=== PATIENT | male | born 1985 | race Caucasian/White ===

== ENCOUNTER → 2017-08-21 20:23 | Outpatient (CLI) | payer OTHER, SELFPAY ==
--- NOTE | 2017-08-21 20:26 | DI.MRI.S_ITS ---
PROCEDURE: MR LUMBAR SPINE WO CON INDICATIONS: LUMBAGO WITH SCIATICA TECHNIQUE: Noncontrast sagittal T1 spin echo and T2 fast echo, sagittal STIR, axial T1 and T2 fast spin echo through the lumbar spine. In cases with scoliosis, additional coronal T2 fast spin echo may be performed. COMPARISON: None. FINDINGS: Image quality: Excellent. Alignment and Curvature: There is trace retrolisthesis of L3 on L4 and grade one retrolisthesis of L5 on S1. Bone Marrow: Marrow is of normal overall signal. Moderate reactive endplate changes are present at L5-S1. No acute vertebral body compression fractures. Spinal Cord: Conus medullaris terminates at the T12-L1 level. Visualized cord demonstrates normal signal and size. Paraspinous Soft Tissues: No paravertebral masses. Discs: Severe desiccation is present at L5-S1. L1-L2: No disc bulge, spinal stenosis or foraminal narrowing. Mild epidural lipomatosis. L2-L3: No disc bulge, spinal stenosis or foraminal narrowing. Mild epidural lipomatosis. L3-L4: No disc bulge, spinal stenosis or foraminal narrowing. Minimal epidural lipomatosis. L4-L5: No disc bulge, spinal stenosis or foraminal narrowing. L5-S1: Mild disc bulge with posterior central/right paracentral protrusion. There is mild compromise of the lateral recesses bilaterally secondary to broad-based bulge. Severe left and moderate right foraminal narrowing is present with nerve root flattening on the left. IMPRESSION: 1. Disc bulge with superimposed protrusion at L5-S1 with prominent bilateral foraminal narrowing include nerve root flattening on the left. Foraminal narrowing is secondary to retrolisthesis. No pars defect is identified. Dictated by: Noy Preutt M.D. on 08/22/2017 at 12:49 Approved by: Noy Pruett M.D. on 08/22/2017 at 13:00
== END ==
PROVIDERS: PCP Family Medicine; Visit Provider Family Medicine
DX: M54.40 Lumbago with sciatica, unspecified side (principal); M43.17 Spondylolisthesis, lumbosacral region
CPT/HCPCS: 72148

== ENCOUNTER 2017-11-27 11:16 | Inpatient (IN) | payer OTHER, SELFPAY ==
[2017-11-15 11:58] VITALS: BMI 29.0
[2017-11-27] VITALS (19 sets, daily range): BP systolic 94–144; BP diastolic 49–87; PULSE 53–92; RESP 10–22; TEMP 36.5–37.2; O2SAT 93–99; BMI 29.0
--- NOTE | 2017-11-27 | DI.RAD.S_ITS ---
PROCEDURE: XR LUMBAR SPINE 2-3V INDICATIONS: L5-S1 TLIF TECHNIQUE: 2 views of the lumbar spine were acquired. COMPARISON: None. FINDINGS: 2 spot fluoroscopic intraoperative views demonstrating L5-S1 posterior spinal fixation with interbody cage graft. There is expected intraoperative alignment. Dictated by: David Sheffield M.D. on 11/27/2017 at 16:23 Approved by: David Sheffield M.D. on 11/27/2017 at 16:24
[2017-11-27] MEDS: LACTATED RINGERS 1,000 ML 42 ML IV (11:55)
[2017-11-27] MEDS: MIDAZOLAM 2 MG/2 ML VIAL IV (13:27)
--- NOTE | 2017-11-27 13:35 | SUR.OPER ---
Prone on spine table, head in foam head support, padded chest and pelvic supports, gel pad at knees, lower legs supported by pillows; nipples, genitalia and toes free of pressure, arms secured on foam padded arm boards at <90 degrees abduction. Tape over blanket at thigh secured to table.
[2017-11-27] MEDS: CEFAZOLIN 2 GM/100 ML FROZ.PIGGY IV ×2 (13:40→19:07)
[2017-11-27] MEDS: BUPIVACAINE 0.25% W/ EPI VIAL 30 ML INJ (14:19)
[2017-11-27] MEDS: BUPIVACAINE LIPOSOME 266 MG/20 ML VIAL INJ (14:21)
--- NOTE | 2017-11-27 15:54 | PM.OP.1 ---
Operative Date/Time/Diagnoses Date of procedure: 11/27/17 Time of procedure: 13:54 Pre-op diagnosis: 1. L5-S1 spinal stenosis 2. L5-S1 spondylosis with radiculopathy 3. L5-S1 spondylolisthesis Post-op diagnosis: same Procedure & Clinicians Procedure: 1. L5-S1 Postero-lateral and posterior interbody fusion 2. L5-S1 interbody cage placement. 3. L5-S1 decompressive laminectomy with bilateral facetecomies 4. L5-S1 Posterior non-segmental instrumentation 5. [place] of bone marrow from iliac crest 6. Utilization of microsurgical technique and operating microscope Same procedure as scheduled: Yes Indications: Patient has been having chronic back pain and worsening lumbar radiculopathy. Patient failed multiple conservative management with worsening pain weakness and numbness in her lower extremity. Patient has been having difficulty performing activity of daily living. After discussing risks benefits of treatment options, patient elected proceed with surgery. Surgeon: Clarence Mendoza Medical Safety Director: Rivka Sy'Brien Click Yes if Unassisted: No Anesthesia Type: General Operative Notes Closure Type: primary Specimen(s): none sent Implants & Drains: Globus revolve screws, Rise cage Applied: catheter Estimated Blood Loss (mL): 50 Blood products transfused: none Procedure in detail: Patient was seen in the preoperative area. Risks and benefits of the surgery was discussed with the patient. Informed consent was obtained from the patient and placed in the chart. Surgical site was marked. Patient was taken to the operative room. General anesthesia was administered. Prophylactic antibiotic was given to the patient less than 30 min before the incision was made. Patient was placed into a prone position on the Ramesh table. Patient's back was then prepped and draped in the sterile fashion. Time-out was performed at this time. Using AP and lateral C-arm imaging the interval between L5-S1 was identified and marked on patient's back. A 2 inch incision 2 in from midline was made on the left side first. The fascia was incised in line with skin incision. Globus MARS retractors was placed inside the incision and docked onto the L5 lamina. Using microsurgical technique and operating microscope, a L5 laminectomy and L5-S1 facetectomy was performed using a Kerrison rongeur. The disc space at L5-S1 was identified. And a total diskectomy was performed at L5-S1 level. The endplates were decorticated using a rasp and shaver. The total diskectomy and decortication was performed at L5-S1 level in order to to accomplish a L5-S1 fusion. The local bone from the laminectomy and facetectomy was saved for local bone grafting. After the total diskectomy and decortication was completed, Globus viacell bone graft material was combined with local bone that was harvested earlier. At this time, a separate skin is incision was made over the iliac crest. A Jamshidi needle was inserted into the iliac crest through a separate skin incision. 5 cc of bone marrow aspiration was obtained through the separate skin incision using a Jamshidi needle from the iliac crest. The bone marrow aspiration was combined with local bone and the via cell bone grafting material. The bone grafting material was placed into the L5-S1 interbody space along with a expandable cage. The cage was expanded to its maximum height using the torque limiting screwdriver. At this time a mirror image incision was made on the left side. The fascia was incised in line with the skin incision. Globus MARS retractor was inserted and docked onto the L5-S1 posterolateral gutter. Using the power drill, posterior-lateral decortication was performed at L5-S1 level until bleeding cortical bone was identified. The remaining bone grafting material was placed into the L5-S1 posterior lateral gutter he order to accomplish posterolateral fusion at the L5-S1 level. Using the double C-arm technique, pedicle screws were placed into the L5-S1 pedicles bilaterally. This was done by placing the Jamshidi needle into the pedicles, then placing the guidewires over the Jamshidi needle, and finally placing the cannulated screws over the guidewires bilaterally. After the pedicle screws were placed, 2 titanium rods was locked into the heads of the pedicle screws using locking caps and torque limiting screwdriver. After all the hardware was placed, and confirmed with AP and lateral C-arm imaging, the wound was then irrigated with sterile normal saline and packed with Ray-Nancy gauze for 3 min to accomplish hemostasis. After the gauze was removed the deep fascia was closed with #1 Vicryl suture. The subcutaneous layer was closed with 2-0 Vicryl. The skin was closed with skin emily. Patient tolerated the procedure well. There were no complications. Complications: none Condition: stable Disposition: Acute Care Plan for aftercare: Admit to inpatient hospital
--- NOTE | 2017-11-27 15:59 | P.OP_ITS ---
Operative Date/Time/Diagnoses Date of procedure: 11/27/17 Time of procedure: 13:54 Pre-op diagnosis: 1. L5-S1 spinal stenosis 2. L5-S1 spondylosis with radiculopathy 3. L5-S1 spondylolisthesis Post-op diagnosis: same Procedure & Clinicians Procedure: 1. L5-S1 Postero-lateral and posterior interbody fusion 2. L5-S1 interbody cage placement. 3. L5-S1 decompressive laminectomy with bilateral facetecomies 4. L5-S1 Posterior non-segmental instrumentation 5. [place] of bone marrow from iliac crest 6. Utilization of microsurgical technique and operating microscope Same procedure as scheduled: Yes Indications: Patient has been having chronic back pain and worsening lumbar radiculopathy. Patient failed multiple conservative management with worsening pain weakness and numbness in her lower extremity. Patient has been having difficulty performing activity of daily living. After discussing risks benefits of treatment options, patient elected proceed with surgery. Surgeon: Clarence Mendoza Janitor Caretaker: Rivka Sy'Brien Click Yes if Unassisted: No Anesthesia Type: General Operative Notes Closure Type: primary Specimen(s): none sent Implants & Drains: Globus revolve screws, Rise cage Applied: catheter Estimated Blood Loss (mL): 50 Blood products transfused: none Procedure in detail: Patient was seen in the preoperative area. Risks and benefits of the surgery was discussed with the patient. Informed consent was obtained from the patient and placed in the chart. Surgical site was marked. Patient was taken to the operative room. General anesthesia was administered. Prophylactic antibiotic was given to the patient less than 30 min before the incision was made. Patient was placed into a prone position on the Ramesh table. Patient's back was then prepped and draped in the sterile fashion. Time- out was performed at this time. Using AP and lateral C-arm imaging the interval between L5-S1 was identified and marked on patient's back. A 2 inch incision 2 in from midline was made on the left side first. The fascia was incised in line with skin incision. Globus MARS retractors was placed inside the incision and docked onto the L5 lamina. Using microsurgical technique and operating microscope, a L5 laminectomy and L5- S1 facetectomy was performed using a Kerrison rongeur. The disc space at L5-S1 was identified. And a total diskectomy was performed at L5-S1 level. The endplates were decorticated using a rasp and shaver. The total diskectomy and decortication was performed at L5-S1 level in order to to accomplish a L5-S1 fusion. The local bone from the laminectomy and facetectomy was saved for local bone grafting. After the total diskectomy and decortication was completed , Globus viacell bone graft material was combined with local bone that was harvested earlier. At this time, a separate skin is incision was made over the iliac crest. A Jamshidi needle was inserted into the iliac crest through a separate skin incision. 5 cc of bone marrow aspiration was obtained through the separate skin incision using a Jamshidi needle from the iliac crest. The bone marrow aspiration was combined with local bone and the via cell bone grafting material. The bone grafting material was placed into the L5-S1 interbody space along with a expandable cage. The cage was expanded to its maximum height using the torque limiting screwdriver. At this time a mirror image incision was made on the left side. The fascia was incised in line with the skin incision. Globus MARS retractor was inserted and docked onto the L5-S1 posterolateral gutter. Using the power drill, posterior- lateral decortication was performed at L5-S1 level until bleeding cortical bone was identified. The remaining bone grafting material was placed into the L5-S1 posterior lateral gutter he order to accomplish posterolateral fusion at the L5- S1 level. Using the double C-arm technique, pedicle screws were placed into the L5-S1 pedicles bilaterally. This was done by placing the Jamshidi needle into the pedicles, then placing the guidewires over the Jamshidi needle, and finally placing the cannulated screws over the guidewires bilaterally. After the pedicle screws were placed, 2 titanium rods was locked into the heads of the pedicle screws using locking caps and torque limiting screwdriver. After all the hardware was placed, and confirmed with AP and lateral C-arm imaging, the wound was then irrigated with sterile normal saline and packed with Ray-Nancy gauze for 3 min to accomplish hemostasis. After the gauze was removed the deep fascia was closed with #1 Vicryl suture. The subcutaneous layer was closed with 2-0 Vicryl. The skin was closed with skin emily. Patient tolerated the procedure well. There were no complications. Complications: none Condition: stable Disposition: Acute Care Plan for aftercare: Admit to inpatient hospital
[2017-11-27] MEDS: HYDROMORPHONE 2 MG INJ 0.5 MG IV ×4 (16:17→16:38)
[2017-11-27] MEDS: LORazepam 2 MG/ML SYRINGE 0.5 MG IV (16:28)
--- NOTE | 2017-11-27 16:33 | SUR.PHASEI ---
On arrival and to this time with often seen tensed hands and moaning. Discussed with patient need to give meds safely. Talked with DR Rogers about use of Loerazepam and this is okayed verbally as well with MRx1. In addition Dr Rogers saying we can try a different opiod if Dilaudud not addressing problems sufficiently.
[2017-11-27] MEDS: METOCLOPRAMIDE 10 MG/2 ML INJ IV (17:08)
[2017-11-27] MEDS: OXYCODONE IR 5 MG TABLET 10 MG PO ×2 (17:17→20:38)
--- NOTE | 2017-11-27 17:17 | SUR.PHASEI ---
Given Oxycodone IR 10mg after talking with DR Rogers over the phone. Patient noting some nausea with Vicodin previously. Told same could happen with this med, but Reglan IV preventatively. Overall patient calmer and easily responsive despite pain rating remaining elevated.
--- NOTE | 2017-11-27 18:42 | PC.NURSE ---
Addendum entered by Carolynn Thompson R.N. 11/27/17 22:49: Stable post op course. Med w. percolone at 2030 w/god relief. Dsg CDI. Assisted to BR w/o incidence Call light w/in reach, bed alarm on for pt safety. continue w/plan of care. Original Note: Pt arrived at 1735. Awake, drowy. Dsg to surgical back CDI. IV fluids infrusing as per orders via pump w/o incidence. Pt denies nausea. Call light w/in reach, bed alarm on for pt safety.
[2017-11-27] MEDS: OXYCODONE/ACETAMINOPHEN 5/325 TABLET 2 TAB PO (19:06)
[2017-11-27] MEDS: SODIUM CHLORIDE 0.9% 1,000 ML 100 ML IV (19:06)
[2017-11-28] MEDS: OXYCODONE IR 5 MG TABLET 10 MG PO ×6 (00:26→21:05)
[2017-11-28 00:44] VITALS: BP 112/60; PULSE 74; RESP 19; TEMP 37; O2SAT 96
--- NOTE | 2017-11-28 01:15 | PC.NURSE ---
Addendum entered by Carolynn Thompson R.N. 11/28/17 07:08: Med at thisntime w/ IV dialudid for 11/15 discomfort. Original Note: Addendum entered by Carolynn Thompson R.N. 11/28/17 05:50: Med at this time w/vistaril for spasm like discomfort. Original Note: Pt resting quietly at this time. Stable post op course. Dsg CDI, Med w/percolone at 2340 w/good relief. Call light w/in reach, bed alarm on for pt safety.
[2017-11-28] MEDS: CEFAZOLIN 2 GM/100 ML FROZ.PIGGY IV (03:24)
[2017-11-28] MEDS: DOCUSATE 100 MG CAPSULE PO ×2 (03:28→08:56)
[2017-11-28 04:11] VITALS: BP 113/57; PULSE 74; RESP 20; TEMP 36.8; O2SAT 97
[2017-11-28] MEDS: SODIUM CHLORIDE 0.9% 1,000 ML 100 ML IV (05:42)
[2017-11-28] MEDS: hydrOXYzine pamoate 25 MG CAPSULE PO (05:47)
[2017-11-28] MEDS: HYDROMORPHONE 1 MG INJ 0.5 MG IV ×2 (06:56→09:14)
[2017-11-28 07:00] VITALS: BP 116/70; PULSE 92; RESP 21; TEMP 36.7; O2SAT 99
[2017-11-28 07:30] LABS: Hematocrit 39.4 % (41-53); Hemoglobin 13.3 g/dL (13.5-17.5)
[2017-11-28] MEDS: DEXAMETHASONE 4 MG TABLET 10 MG PO (08:55)
[2017-11-28] MEDS: ONDANSETRON 4 MG/2 ML INJ IV ×2 (09:19→17:54)
--- NOTE | 2017-11-28 09:55 | PM.PNPO.1 ---
Subjective Date Patient Seen: 11/28/17 Time Patient Seen: 09:55 Interval history: Hospital day 2, postop day 1 following L5-S1 TLIF [address] Dr. Mendoza. Patient was able to void initially after surgery has been unable to void the last few hours. Notes fullness to his bladder. Complains of persisting pain to lower back and his leg. Has been getting oxycodone 10 mg and IV Dilaudid. Not having complete control. He was on meloxicam preoperatively but is not able to use that at this time because of hardware in his spine. Exam Vital Signs (past 8 hours): - 11/28/17 04:11 11/28/17 07:00 Temperature 98.2 F 98.1 F Pulse Rate 74 92 H Respiratory Rate 20 21 Blood Pressure 113/57 L 116/70 Pulse Oximetry 97 99 Oxygen Delivery Method Room Air Narrative Exam Narrative: Alert, responsive in no acute distress lying in bed. Legs. No calf pain or swelling. Pulses symmetrical. Sensory testing to lower legs nose normal sensation bilaterally except decreased sensation to medial left calf. Good strength on foot dorsiflexion plantar flexion. Objective Labs Result Diagrams: 11/28/17 06:25 Labs: Laboratory Results - last 24 hr 11/28/17 06:25 Hgb 13.3 L Hct 39.4 L Assessment & Plan Post-op Postoperative Procedures Operation Date: 11/27/17 13:15 Actual Procedures Side Surgeon p L5-S1 TLIF Not Applicable Clarence Mendoza MD Plan: Will start patient on dexamethasone to see if this will help with his pain and leg symptoms. Given dexamethasone 10 mg p.o. now and then start dexamethasone 4 mg q.8h at 1400 today. Patient will be bladder scanned this morning and may need in and out catheter. Will observe for further improvement today and anticipate discharge home tomorrow if he is stable. Quality VTE Deep Vein Thrombosis/Pulmonary Embolism Present on Admission: No
[2017-11-28 11:01] VITALS: BP 111/64; PULSE 60; RESP 20; TEMP 37.3; O2SAT 95
--- NOTE | 2017-11-28 11:31 | PC.NURSE ---
Patient had an in and out catheter due to inability to urinate. Bladder scan showed 400mL (per ELECTRONIC DRAFTER) and actual urine output with the catheter was 800 mL. Urine was straw color, clear and without odor. Patient tolerated the procedure well.
--- NOTE | 2017-11-28 12:51 | CM.DANOTE ---
DCP: Reviewed chart. Patient is a 32yr old male admitted to [facility] for TLIF performed by Dr. Mendoza on 11-27-17. Primary payor is 1)Brandon. No PCP listed. Met with patient explained CM/SW role. Patient reports that he resides with his spouse and family in [place] Patient plans to return home upon discharge from [facility] Patient currently with therapy evaluation pending. Patient believes that he will most likely be discharged tomorrow 11-29. Patient has family support at home and reports that his Mom is coming to stay with him from [place] during recovery. Patient already owns FWW. P: Anticipate home when medically stable. CM team to continue to follow for if needs arise. VERÓNICA Bills Discharge Planning/Care Management CM Discharge Assessment Start: 11/28/17 12:47 Freq: Status: Active Protocol: Document 11/28/17 12:48 KJS (Rec: 11/28/17 12:51 KJS [id number]) Discharge Planning Assessment Assigned Life Insurance Sales VERÓNICA Bills Advance Directives? No History Provided By Patient Has Patient been admitted in last 30 No days? Prior Living Arrangements House Household Members significant other Type of transporation used prior to Drives own vehicle admit Independent with ADL's Yes Is patient alert and oriented? Yes Caregiver for Another No DME Already Rented / Owned FWW / Walker Barriers to Discharge No Discharge Plan Home Transportation Arrangement Family to provide transport Referrals Initiated None needed Whiteboard Updated in Patient Room with Yes name and ext. # of Life Insurance Sales Review Status In Process Please Provide Date Initial DC 11/28/17 Assessment Was Performed Next Review Type Continued Stay Review Pre-Anesthesia Assessment Start: 11/14/17 12:59 Freq: Status: Active Protocol: Document 11/15/17 11:58 CAB (Rec: 11/15/17 12:28 CAB [id number]) Pre-Anesthesia Assessment Patient Information Reviewed Via Phone Assessment Assessment Completed With Patient Primary Care Provider None Seen Specialist in Last 12 Months Yes Specialist Seen Orthopedist Primary Language Colombian Wall Taper Required No Height 193.04 cm Weight 108.409 kg Body Mass Index (BMI) 29.0 Hearing Ability Normal Visual Assist Glasses Dentition Type Teeth, Natural Present Barriers to Learning None Hx Anesthesia Reactions No Hx Family Anesthesia Reaction No Hx Malignant Hyperthermia No Hx Blood Transfusions No Anesthesia Review Requested No Manager Corporate Responsibility No alcohol intake current alcohol intake frequency a few times a month Smoking Status Former smoker Tobacco type cigarettes how long ago did patient quit smoking Quit 7 weeks ago, smoked on & off 2 years Substance Use Type marijuana Comment Advised not to smoke marijuana 24 hours prior to surgery Pain Present Pain Reported Musculoskeletal Symptoms Back Pain Difficulty Walking Limited Range of Motion Loss of Height Muscle Spasms Numbness Radiating Pain into Limb History of Falling (Recent or History of No ) Patient is completely paralyzed or No completely immobile Mental Status Oriented to own ability Is patient on oxygen? No Does patient have MCMANUS/SOB No Hx Sleep Apnea No Suspected Sleep Apnea No Currently Taking a Beta Yovani No Can You Climb a Flight of Stairs Without Yes SOB Hx Chest Pain No Hx SOB Yes: r/t asthma/cold Hx Syncope or Dizziness No Anti-Coagulant Therapy No Has a Pipe Coverer No Cardiac Testing No Hx Pacemaker/ICD No Pacemaker Rep Required? No Cardiac Clearance Received Not Applicable Diet Type At Home Regular dysphagia No Urinary Catheter Present No Hx Urinary Self Catheterization No Diabetes No Hx Drug Resistant Organism No Presence of External or Internal Medical No Devices Have you traveled outside the [facility] in the last 30 days? Marital Status Lives With significant other Prior Living Arrangements House Number of Floors (Floors) One Floor Number of Stairs To Enter/Railing? 2 stairs, no railing Support System Family Significant Other Does the Patient Have Assistance After Yes Surgery Patient Discharge Plan Description Return Home Comment Pt advised 1 night length of stay per surgeon's office Feels Safe in Current Environment Yes Been Physically Hurt or Threatened By a No Person in Current Environment Do you have thoughts of harming yourself None or others? Are you currently considering suicide? No Do you have a plan to hurt yourself or No Plan others? Do You Have Any Spiritual Beliefs That No May Affect Your HC Choices? Do You Have Any Cultural Practices That No May Affect Your HC Choices? Spiritual Referral None Who Can We Speak to About Patient's Care Family, friends Identifying Code for Release of Patient Declines to issue Information Health Care Proxy/Next of Kin Samira Shea (S.O.) Health Care Proxy Emergency Contact Name Samira Shea (S.O.) Emergency Contact Advance Directives? No: Declines further information Requested Patient Bring Advanced Not Applicable Directives DOS Power of Precast Concrete Ironworker No PAC Instructions Do not shave/clip surgical site Durable medical equipment Medications to take/avoid Nasal antibiotic NPO Pre-op antibiotic Sturdy shoes/comfortable clothes Do not bring valuables and remove jewelry PAC Comment Pt has high anxiety regarding needles
--- NOTE | 2017-11-28 12:52 | PT.IIE ---
Current Diagnoses Spondylolisthesis, lumbosacral region (11/27/17) Other spondylosis with radiculopathy, lumbar region (11/27/17) Spinal stenosis, lumbar region without neurogenic claudication (11/27/17) Surgery Performed Operation Date: 11/27/17 13:15 Actual Procedures p L5-S1 TLIF(Not Applicable) - Clarence Mendoza MD Surgical History (Last Updated 11/15/17 @ 12:09 by Kourtney Quach RN) H/O: vasectomy (Acute) History of arthroscopy of both knees (Acute) Medical History (Last Updated 11/15/17 @ 12:09 by Kourtney Quach RN) Anxiety (Acute) Low back pain (Acute) Numbness (Acute) RLS (restless legs syndrome) (Acute) Asthma (Chronic 1987) Chronic low back pain (Chronic ~2009) 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 Patient's present during treatment. Mobility and Gait Patient independent in mobility and gait prior to surgery. No assistive devices needed. Activities of Daily Living and IADL's Patient independent in all self-care prior to surgery. 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 Patient drove as needed and performed duties around the home as needed. Social History Household Members spouse family Living Arrangements House Number of Floors (Floors) One Floor Number of Stairs To Enter/Railing? One step to enter home from garage, no hand rails. In the home there are two steps to descend to their bedroom. 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 She is an RN. will also be able to assist patient outside of her work hours. M2 PT-IP Current Condition Start: 11/28/17 12:23 Freq: NEEDED Status: Active Protocol: Document 11/28/17 09:55 NFW (Rec: 11/28/17 12:51 NFW [id number]) Physical Therapy Current Condition Current Condition Evaluation Date 11/28/17 Treatment Diagnosis s/p L5-SA postero-lateral and interbody fusion Onset Date 11/27/17 surgery Precautions Lumbar Precautions Log Roll No Twisting Limit Bending Lifting Restriction of 10 lbs Gait Belt above Incisional Area Weight Bearing Status Weight Bearing Status Full Weight Bearing M3 PT-IP Subjective Start: 11/28/17 12:23 Freq: NEEDED Status: Active Protocol: Document 11/28/17 09:55 NFW (Rec: 11/28/17 12:51 NFW [id number]) Subjective Physical Therapy Visit Type Type Initial Evaluation Visit Start Time 09:55 Visit Stop Time 10:25 Total Visit Minutes 30 Physical Therapy Visit Comments Patient Comments Patient in need to urinate. Also informed from that patient has history of nausea, vomiting with pain meds from previous surgeries. Patient Goals Home with . Therapy Pain Assessment Pain When Pain Assessed At Rest M4 PT-IP Mobility and Gait Start: 11/28/17 12:23 Freq: NEEDED Status: Active Protocol: Document 11/28/17 09:55 NFW (Rec: 11/28/17 12:51 NFW [id number]) PT-Bed Mobility Assessment Rolling Type of Rolling Roll to Left Level of Assist Moderate Assistance 2 Person Assistance Supine to Sit Supine to Sit Moderate Assistance 2 Person Assistance Sit to Supine Sit to Supine Maximum Assistance 2 Person Assistance Scooting Scooting to Edge of Bed Minimal Assistance PT-Transfer Assessment Sit to and From Stand Sit to and from Stand Minimal Assistance 2 Person Assistance Use of Upper Extremities Comments Mobility Comments Patient anxious to get up so that he can urinate. Mod assist of 2 to log roll left and then to sitting. Once sitting c/o dizziness but willing to stand. Min assist of 2 to stand, after ~10 seconds increase dizziness, nausea, sweating. Patient assisted to sitting at EOB. BP sitting 70/29, pulse 69. ~ 5 min. later BP 103/52, pulse 58. Increase nausea, patient assisted supine max assist of three. RN present. M5 PT-IP Objective Assessments Start: 11/28/17 12:23 Freq: NEEDED Status: Active Protocol: Document 11/28/17 09:55 NFW (Rec: 11/28/17 12:51 NF [id number]) Orientation Orientation/Cognition Level of Alertness Alert Language Function Ability No Deficits Noted Sensation Assessment Sensation Gross Sensation WNL Light Touch Intact Comments Sensation Comments Prior to surgery patient would experience occasional numbness into LLE. M6 PT-IP Treatment Start: 11/28/17 12:23 Freq: NEEDED Status: Active Protocol: Document 11/28/17 09:55 NFW (Rec: 11/28/17 12:51 [facility] [id number]) Physical Therapy Treatment Exercises Exercises Ankle Pumps Other Treatments Other Treatment Performed Post-op packet given to patient and . Will review with next treatment. M7 PT-IP Assessment and Plan Start: 11/28/17 12:23 Freq: NEEDED Status: Active Protocol: Document 11/28/17 09:55 NFW (Rec: 11/28/17 12:51 [facility] [id number]) PT Summary Assessment and Plan Potential Rehabilitation Potential Excellent Status of Condition at Evaluation Unstable Summary Impairments Pain Strength Balance Bed Mobility Transfers Gait Activity Tolerance Progress Towards Goals Slow Progress due to Medical Issues Assessment Summary Patient with complication of nausea, vomiting, cold sweats affecting ability to progress in therapy. Goals Bed Mobility Goal Independent Transfer Goal Standby Assistance Gait Goal Standby Assistance Gait Distance 100' Other Goals Post-op Precautions. Days to Meet Goals 2 Frequency of Treatment Frequency Of Treatment Twice a Day Treatment Plan Physical Therapy Treatment Plan Bed Mobility Training Transfer Training Gait Training Therapeutic Exercise Balance Retraining Post Op Education Recommendations To Nursing Amount of Assist Needed 2 Person Assist Discharge Recommendations PT Discharge Recommendations Home Equipment Needed for Home Before Will assess with next Discharge treatment.
[2017-11-28] MEDS: ACETAMINOPHEN 325 MG TABLET 650 MG PO ×2 (13:29→20:16)
--- NOTE | 2017-11-28 14:15 | OT.IP.TRT ---
Current Diagnoses Spondylolisthesis, lumbosacral region (11/27/17) Other spondylosis with radiculopathy, lumbar region (11/27/17) Spinal stenosis, lumbar region without neurogenic claudication (11/27/17) Surgery Performed Operation Date: 11/27/17 13:15 Actual Procedures p L5-S1 TLIF(Not Applicable) - Clarence Mendoza MD Occupational Therapy Treatment Note M3 OT- IP Subjective and Pain Start: 11/28/17 15:03 Freq: Status: Active Protocol: Document 11/28/17 14:15 PJM (Rec: 11/28/17 15:05 PJM [id number]) OT- Subjective Occupational Therapy Visit Type Type Administrative Note Visit Start Time 14:15 Notes OT referral received. Pt presents with very low activity tolerance with P.T. today and has been unable to ambulate. Pt also having trouble with urination. Pt not yet ready for self care skills assessment . Will hold today and recheck pt's status in AM. No charge.
[2017-11-28] MEDS: DEXAMETHASONE 4 MG TABLET PO ×2 (14:25→22:29)
--- NOTE | 2017-11-28 14:33 | PT.IPTN ---
Current Diagnoses Spondylolisthesis, lumbosacral region (11/27/17) Other spondylosis with radiculopathy, lumbar region (11/27/17) Spinal stenosis, lumbar region without neurogenic claudication (11/27/17) Surgery Performed Operation Date: 11/27/17 13:15 Actual Procedures p L5-S1 TLIF(Not Applicable) - Clarence Mendoza MD Physical Therapy Treatment Note M2 PT-IP Current Condition Start: 11/28/17 12:23 Freq: NEEDED Status: Active Protocol: Document 11/28/17 13:30 NFW (Rec: 11/28/17 14:33 NFW [id number]) Physical Therapy Current Condition Current Condition Evaluation Date 11/28/17 Treatment Diagnosis s/p L5-SA postero-lateral and interbody fusion Onset Date 11/27/17 surgery Precautions Lumbar Precautions Log Roll No Twisting Limit Bending Lifting Restriction of 10 lbs Gait Belt above Incisional Area Other Precautions Instructions provided to and patient. Attentive during instruction. Weight Bearing Status Weight Bearing Status Full Weight Bearing M3 PT-IP Subjective Start: 11/28/17 12:23 Freq: NEEDED Status: Active Protocol: Document 11/28/17 13:30 NFW (Rec: 11/28/17 14:33 NFW [id number]) Subjective Physical Therapy Visit Type Type Treatment Note Visit Start Time 13:30 Visit Stop Time 14:15 Total Visit Minutes 45 Number of PROJECT ASST Visits 0 Physical Therapy Visit Comments Patient Comments Patient with desire to walk to toilet to urinate. Patient Goals Home with . Therapy Pain Assessment Pain When Pain Assessed At Rest Pain Present Pain Present Pain Reported Location Lower Back Intensity 8 Scale Used Numeric (1 - 10) M4 PT-IP Mobility and Gait Start: 11/28/17 12:23 Freq: NEEDED Status: Active Protocol: Document 11/28/17 13:30 NFW (Rec: 11/28/17 14:33 NFW [id number]) PT-Bed Mobility Assessment Rolling Type of Rolling Roll to Right Roll to Left Level of Assist Moderate Assistance 1 Person Assistance Supine to Sit Supine to Sit Moderate Assistance 1 Person Assistance Sit to Supine Sit to Supine Moderate Assistance 1 Person Assistance Scooting Scooting to Edge of Bed Minimal Assistance Scooting Up and Down in Bed Minimal Assistance PT-Transfer Assessment Sit to and From Stand Sit to and from Stand Minimal Assistance 1 Person Assistance Use of Upper Extremities Equipment Transfer Assistive Device Front Wheeled Walker Transfers Transfer Destination Bed Transfer Ability Level of Assist Moderate Assistance 1 Person Assistance Comments Mobility Comments Standing from bed, patient again became nauseous, lightheaded, cold sweat. Sat back down at EOB. Attempted to urinate while sitting at EOB unsuccessful. Able to stand again with min assist of one. Able to urinate while standing 1000cc. Continued to have dizziness. Instruction back to bed with continuous cuing. Gait Assessment Assistive Devices Assistive Device Front Wheeled Walker M5 PT-IP Objective Assessments Start: 11/28/17 12:23 Freq: NEEDED Status: Active Protocol: Document 11/28/17 13:30 NFW (Rec: 11/28/17 14:33 NFW [id number]) Orientation Orientation/Cognition Level of Alertness Alert M6 PT-IP Treatment Start: 11/28/17 12:23 Freq: NEEDED Status: Active Protocol: Document 11/28/17 13:30 NFW (Rec: 11/28/17 14:33 NFW [email or web address]) Physical Therapy Treatment Exercises Exercises Ankle Pumps M7 PT-IP Assessment and Plan Start: 11/28/17 12:23 Freq: NEEDED Status: Active Protocol: Document 11/28/17 13:30 NFW (Rec: 11/28/17 14:33 NFW [id number]) PT Summary Assessment and Plan Potential Rehabilitation Potential Excellent Status of Condition at Evaluation Evolving Summary Impairments Pain Strength Balance Bed Mobility Transfers Gait Activity Tolerance Progress Towards Goals Slow Progress due to Medical Issues Assessment Summary Continued slow post-op progression with dizziness, nausea, vomiting, cold sweats. Good attempts by patient. Receptive with instruction. Frequency of Treatment Frequency Of Treatment Twice a Day Treatment Plan Physical Therapy Treatment Plan Bed Mobility Training Transfer Training Gait Training Therapeutic Exercise Balance Retraining Post Op Education Recommendations To Nursing Amount of Assist Needed 1 Person Assist Discharge Recommendations PT Discharge Recommendations Home Other Discharge Recommendations Home with and mother. Equipment Needed for Home Before No further equipment at Discharge present from PT. May need equipment from OT.
[2017-11-28 15:40] VITALS: BP 128/60; PULSE 65; RESP 12; TEMP 36.7; O2SAT 98
--- NOTE | 2017-11-28 15:44 | PC.NURSE ---
Ortho: Lots of pain this am, having diff voiding. Started dexa and saline locked IVF. Bladder scanned for 600mls, in and out cath for 800mls. Thought nausea might be due to pain meds, opted for plain tylenol this afternoon. Ended up needing some oxycodone after all. Po pain meds have been effective. Was able to void this afternoon. Is feeling better this afternoon and was able to work with PT some. Hopefully will feel better tomorrow. Cont w/poc.
[2017-11-28] MEDS: MAG HYDROX/ALUM/SIMETH 30 ML UDC PO (17:57)
[2017-11-28] MEDS: SENNOSIDES 8.6 MG TABLET 17.2 MG PO (20:18)
[2017-11-28 22:33] VITALS: BP 111/50; PULSE 58; RESP 20; TEMP 37.2; O2SAT 95
[2017-11-29] MEDS: OXYCODONE IR 5 MG TABLET 10 MG PO ×5 (01:18→21:48)
[2017-11-29 01:21] VITALS: BP 114/68; PULSE 65; RESP 16; TEMP 36.9; O2SAT 95
--- NOTE | 2017-11-29 05:27 | PC.NURSE ---
Pt is A and O x4, VSS. Pt able to void with urinal qs, clear yellow. Pt rates pain 7/10 but gets good relief from10 mg oxycodone po. Pt able to sleep. Pt is drinking well. Pt denies nausea, states he has not had a BM since 11/25/17 which is unusual but has been hesitant to take too many bowel meds until he is able to ambulate better. Bt very faint. S1, S2, LS clear. R wrist IV saline locked.
[2017-11-29 06:04] VITALS: BP 112/49; PULSE 66; RESP 16; TEMP 37.1; O2SAT 96
[2017-11-29] MEDS: DEXAMETHASONE 4 MG TABLET PO ×3 (08:02→21:46)
[2017-11-29] MEDS: DOCUSATE 100 MG CAPSULE PO ×2 (08:02→21:46)
--- NOTE | 2017-11-29 08:16 | PM.PNPO.1 ---
Subjective Date Patient Seen: 11/29/17 Time Patient Seen: 07:30 Interval history: Patient is POD 2 staus post L5-S1 TLIF by Dr. Mendoza. Patient is laying in bed comfortably without any signs of distress. is sitting bedside. Patient rates his pain a 7/10. He reports that his pain has improved since yesterday. His pain is managed with 10mg oxycodone. PT was seen yesterday. Patient reports not being able to fully do PT due to feeling dizzy and nauseated. Patient reports that he was having difficulty voiding yesterday and catheter was placed. Catheter was removed and patient reports he is able to urinate. Patient went from bed to standing position while in room and reports no dizziness or nausea. Patient denies and fever, chills, SOB,chest pain or vomiting. Exam Vital Signs (past 8 hours): - 11/29/17 01:21 11/29/17 06:04 Temperature 98.5 F 98.7 F Pulse Rate 65 66 Respiratory Rate 16 16 Blood Pressure 114/68 112/49 L Pulse Oximetry 95 96 Oxygen Delivery Method Room Air Oxygen Flow Rate 0 Narrative Exam Narrative: Patient is AOx3. is bedside. Patient is in no acute distress. Radial and dorsalis pedis pulses 2+ and symmetric. Muscle strength 5/5 in dorsiflexion, plantarflexion and leather stretcher bilaterally. Sensation to light touch intact in LE bilaterally. Lumbar dressing CDI. DVT compression devices noted on LE bilaterally. L calf is slightly tender to palpation, otherwise calfs are soft and compressible bilaterally. Patient is able to stand up from laying in bed with little pain. Objective Labs Result Diagrams: 11/28/17 06:25 Assessment & Plan Post-op Postoperative Procedures Operation Date: 11/27/17 13:15 Actual Procedures Side Surgeon p L5-S1 TLIF Not Applicable Clarence Mendoza MD Postoperative day: 2 Postoperative plan: routine post-op care and ambulate Postoperative plan narrative: Continue mobilizing, sitting in chair and ambulating with PT. Continue pain management. Likely to discharge home tomorrow. Continue DVT prophylaxis. Quality VTE Deep Vein Thrombosis/Pulmonary Embolism Present on Admission: No
--- NOTE | 2017-11-29 08:31 | P.PN_ITS ---
Subjective Date Patient Seen: 11/29/17 Time Patient Seen: 07:30 Interval history: Patient is POD 2 staus post L5-S1 TLIF by Dr. Mendoza. Patient is laying in bed comfortably without any signs of distress. is sitting bedside. Patient rates his pain a 7/10. He reports that his pain has improved since yesterday. His pain is managed with 10mg oxycodone. PT was seen yesterday. Patient reports not being able to fully do PT due to feeling dizzy and nauseated. Patient reports that he was having difficulty voiding yesterday and catheter was placed. Catheter was removed and patient reports he is able to urinate. Patient went from bed to standing position while in room and reports no dizziness or nausea. Patient denies and fever, chills, SOB,chest pain or vomiting. Exam Vital Signs (past 8 hours): - 11/29/17 01:21 11/29/17 06:04 Temperature 98.5 F 98.7 F Pulse Rate 65 66 Respiratory Rate 16 16 Blood Pressure 114/68 112/49 L Pulse Oximetry 95 96 Oxygen Delivery Method Room Air Oxygen Flow Rate 0 Narrative Exam Narrative: Patient is AOx3. is bedside. Patient is in no acute distress. Radial and dorsalis pedis pulses 2+ and symmetric. Muscle strength 5/ 5 in dorsiflexion, plantarflexion and bookmobile clerk bilaterally. Sensation to light touch intact in LE bilaterally. Lumbar dressing CDI. DVT compression devices noted on LE bilaterally. L calf is slightly tender to palpation, otherwise calfs are soft and compressible bilaterally. Patient is able to stand up from laying in bed with little pain. Objective Labs Result Diagrams: 11/28/17 06:25 Assessment & Plan Post-op Postoperative Procedures Operation Date: 11/27/17 13:15 Actual Procedures Side Surgeon p L5-S1 TLIF Not Applicable Clarence Mendoza MD Postoperative day: 2 Postoperative plan: routine post-op care and ambulate Postoperative plan narrative: Continue mobilizing, sitting in chair and ambulating with PT. Continue pain management. Likely to discharge home tomorrow. Continue DVT prophylaxis. Quality VTE Deep Vein Thrombosis/Pulmonary Embolism Present on Admission: No
[2017-11-29] MEDS: hydrOXYzine pamoate 25 MG CAPSULE PO ×2 (08:59→18:41)
[2017-11-29] MEDS: ACETAMINOPHEN 325 MG TABLET 650 MG PO (08:59)
[2017-11-29 09:00] VITALS: BP 119/59; PULSE 69; RESP 16; TEMP 36.7; O2SAT 98
--- NOTE | 2017-11-29 10:58 | OT.IP.EVAL ---
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 Tylenol given prior to treatment. Patient's present during treatment . Mobility and Gait Patient independent in mobility and gait prior to surgery. No assistive devices needed. Activities of Daily Living and IADL's Patient independent in all self-care prior to surgery. 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 Patient drove as needed and performed duties around the home as needed. Social History Household Members spouse family Living Arrangements House Number of Stairs To Enter/Railing? One step to enter home from garage, no hand rails. In the home there are two steps to descend to their bedroom. Home Equipment Front Wheel Walker Additional Social History Comment Patient's mother is flying in from [place] today to stay with patient. She is an RN. will also be able to assist patient outside of her work hours. M2 OT-IP Current Condition Start: 11/28/17 15:03 Freq: Status: Active Protocol: Document 11/29/17 10:10 [facility] (Rec: 11/29/17 10:57 [facility] [id number]) Occupational Therapy Current Condition Current Condition Evaluation Date 11/29/17 Treatment Diagnosis Spinal Stenosis Diagnosis Onset Date 11/27/17 Post Operative Precautions Lumbar Precautions Log Roll No Twisting Limit Bending Lifting Restriction of 10 lbs Gait Belt above Incisional Area Other Precautions Instructions provided to and patient. Attentive during instruction. Weight Bearing Status Weight Bearing Status Full Weight Bearing M3 OT- IP Subjective and Pain Start: 11/28/17 15:03 Freq: Status: Active Protocol: Document 11/29/17 10:10 [facility] (Rec: 11/29/17 10:57 [facility] [id number]) OT- Subjective Occupational Therapy Visit Type Type Initial Evaluation Visit Start Time 09:20 Visit Stop Time 10:10 Total Visit Minutes 50 Occupational Therapy Visit Comments Patient Comments Pt agreeable to get up. OT Pain Assessment Pain When Pain Assessed During Mobility Pain Present Pain Present Pain Reported Location Lower Back Intensity 8 Scale Used Numeric (1 - 10) Pain Behaviors Wincing Management Techniques Apply Cold Re-positioning Timing of Activity with Medications M4 OT- IP ADL's Start: 11/28/17 15:03 Freq: Status: Active Protocol: Document 11/29/17 10:10 [facility] (Rec: 11/29/17 10:57 [facility] [id number]) OT ADL-Grooming Comments OT Grooming Comments Pt not up to doing any grooming at this time due to pain. OT ADL-Dressing General Eval Lower Body Dressing Ability Maximum Assistance Comments OT Dressing Comments Pt dependent for socks at this time and due to pain did not want to try to use LB AED. Pt has wheelabrator operator and long handled shoe horn at home. OT ADL-Toileting Comments OT Toileting Comments Pt's to get BSC as pt has two steps to bedroom and also suggested to have pt use urinal. OT ADL-Bathing Comments OT Bathing Comments Pt not wanting to shower. M5 OT- IP IADL's Start: 11/28/17 15:03 Freq: Status: Active Protocol: Document 11/29/17 10:10 [facility] (Rec: 11/29/17 10:57 [facility] [email or web address]) OT-Instrumental Activities of Daily Living Home Safety Awareness Home Safety Comments Pt will have assist for all IADL needs from family. M6 OT- IP Functional Cognition Start: 11/28/17 15:03 Freq: Status: Active Protocol: Document 11/29/17 10:10 [facility] (Rec: 11/29/17 10:57 [facility] [email or web address]) Cognitive Factors Limiting Selfcare Function Cognitive Ability Level of Alertness Alert Patient Orientation Name Age Birthday Month Date Year Day of Week Place Situation Attention Span Ability Capable of Focused Attention Capable of Sustained Attention Ability to Follow Commands Able to Follow One Step Commands Safety Awareness Decreased Ability to Apply Precautions Cognitive Comments Cognitive Assessment Comments Pt just needing lots of encouragement and reassurance to move more in therapy. pt needing reminders for back precautions for needs. OT- Vision and Hearing OT- Hearing Assessment OT- Hearing Assessment WFL M7 OT- IP Mobility and Balance Start: 11/28/17 15:03 Freq: Status: Active Protocol: Document 11/29/17 10:10 [facility] (Rec: 11/29/17 10:57 [facility] [email or web address]) OT- Bed Mobility Assessment Rolling Type of Rolling Roll to Left Supine to Sit Supine to Sit Assist Contact Guard Assistance Sit to Supine Sit to Supine Assist Minimal Assistance Scooting Scooting to Edge of Bed Standby Assistance OT-Transfer Assessment Sit to and From Stand Sit to and from Stand Contact Guard Assistance Transfers Transfer Ability Standby Assistance Contact Guard Assistance Technique Transfer Destination Bed Chair Transfer Technique Stand Step Pivot Devices Transfer Assistive Devices Gait Belt Front Wheeled Walker Comments Mobility Comments Pt reminders for log roll, has to push up from the FWW to get up. Pt's able to show good safety and demonstration to assist pt for transfers and will needs more hands on training for sit to supine needs. OT- Balance Assessment Sitting Balance and Reactions Static Sitting Balance Ability Normal Dynamic Sitting Balance Ability Good Standing Balance and Reactions Static Standing Balance Ability Good M8 OT- IP Objective Assessments Start: 11/28/17 15:03 Freq: Status: Active Protocol: Document 11/29/17 10:10 [facility] (Rec: 11/29/17 10:57 [facility] [id number]) OT Gross Range of Motion Upper Extremity Range of Motion Assessment Within Functional Limits OT Strength Upper Extremity Strength Assessment Within Functional Limits OT-Muscle Tone Assessment Muscle Tone WNL Yes M9 OT- IP Assessment and Plan Start: 11/28/17 15:03 Freq: Status: Active Protocol: Document 11/29/17 10:10 [facility] (Rec: 11/29/17 10:57 [facility] [email or web address]) OT Summary Assessment and Plan Potential Rehabilitation Potential Excellent Analytic Complexity at Evaluation Low Summary OT Impairments Pain Functional Cognition Functional Mobility Grooming Dressing Toileting Bathing Toilet Transfers Shower Transfers Progress Towards Goals Slow Progress due to Pain Slow Progress due to Activity Tolerance Assessment Summary Pt Low complexity and main barrier is steps and pain and only been able to take steps around the bed with FWW to the recliner at this time. Pt and had good understanding for all OT equipment needs and suggestions for safety at this time. Pt to have lot of assistance at home to help, mom in from [place]. Goals Grooming Goal Standby Assistance Dressing Goal Minimal Assistance Toileting Goal Standby Assistance Bathing Goal Minimal Assistance Toilet Transfer Goal Standby Assistance Shower Transfer Goal Contact Guard Assistance Patient/Caregiver Education Goal Demonstrate Post-Op Precautions Caregiver Independent Assisting Patient Days to Meet Goals 2 Frequency of Treatment Frequency Of Treatment Once a Day Treatment Plan OT Treatment Plan ADL Training Functional Cognition Training Patient/Family Education Discharge Planning Other Treatment Recommendations and Next Caregiver traiing with Treatment Focus Discharge Recommendations OT Discharge Recommendations Home with Assistance Home Equipment Needs garry NEIL FWW
[2017-11-29] MEDS: HYDROMORPHONE 2 MG TABLET 4 MG PO ×2 (11:47→16:59)
[2017-11-29] MEDS: MAG HYDROX/ALUM/SIMETH 30 ML UDC PO ×2 (11:48→18:41)
[2017-11-29] MEDS: ONDANSETRON 4 MG/2 ML INJ IV (11:55)
--- NOTE | 2017-11-29 12:06 | PT.IPTN ---
Current Diagnoses Spondylolisthesis, lumbosacral region (11/27/17) Other spondylosis with radiculopathy, lumbar region (11/27/17) Spinal stenosis, lumbar region without neurogenic claudication (11/27/17) Surgery Performed Operation Date: 11/27/17 13:15 Actual Procedures p L5-S1 TLIF(Not Applicable) - Clarence Mendoza MD Physical Therapy Treatment Note M2 PT-IP Current Condition Start: 11/28/17 12:23 Freq: NEEDED Status: Active Protocol: Document 11/28/17 13:30 [facility] (Rec: 11/28/17 14:33 [email or web address]) Physical Therapy Current Condition Current Condition Evaluation Date 11/28/17 Treatment Diagnosis s/p L5-SA postero-lateral and interbody fusion Onset Date 11/27/17 surgery Precautions Lumbar Precautions Log Roll No Twisting Limit Bending Lifting Restriction of 10 lbs Gait Belt above Incisional Area Other Precautions Instructions provided to and patient. Attentive during instruction. Weight Bearing Status Weight Bearing Status Full Weight Bearing M3 PT-IP Subjective Start: 11/28/17 12:23 Freq: NEEDED Status: Active Protocol: Document 11/29/17 12:05 [facility] (Rec: 11/29/17 12:06 [facility] [email or web address]) Subjective Physical Therapy Visit Type Type Patient Refusal Notes Pt refusal d/t pain levels, to see after meds provided after lunch. M4 PT-IP Mobility and Gait Start: 11/28/17 12:23 Freq: NEEDED Status: Active Protocol: Document 11/28/17 13:30 [facility] (Rec: 11/28/17 14:33 [email or web address] [email or web address]) PT-Bed Mobility Assessment Rolling Type of Rolling Roll to Right Roll to Left Level of Assist Moderate Assistance 1 Person Assistance Supine to Sit Supine to Sit Moderate Assistance 1 Person Assistance Sit to Supine Sit to Supine Moderate Assistance 1 Person Assistance Scooting Scooting to Edge of Bed Minimal Assistance Scooting Up and Down in Bed Minimal Assistance PT-Transfer Assessment Sit to and From Stand Sit to and from Stand Minimal Assistance 1 Person Assistance Use of Upper Extremities Equipment Transfer Assistive Device Front Wheeled Walker Transfers Transfer Destination Bed Transfer Ability Level of Assist Moderate Assistance 1 Person Assistance Comments Mobility Comments Standing from bed, patient again became nauseous, lightheaded, cold sweat. Sat back down at EOB. Attempted to urinate while sitting at EOB unsuccessful. Able to stand again with min assist of one. Able to urinate while standing 1000cc. Continued to have dizziness. Instruction back to bed with continuous cuing. Gait Assessment Assistive Devices Assistive Device Front Wheeled Walker M5 PT-IP Objective Assessments Start: 11/28/17 12:23 Freq: NEEDED Status: Active Protocol: Document 11/28/17 13:30 [facility] (Rec: 11/28/17 14:33 [email or web address] [email or web address]) Orientation Orientation/Cognition Level of Alertness Alert M6 PT-IP Treatment Start: 11/28/17 12:23 Freq: NEEDED Status: Active Protocol: Document 11/28/17 13:30 [facility] (Rec: 11/28/17 14:33 [email or web address] [email or web address]) Physical Therapy Treatment Exercises Exercises Ankle Pumps M7 PT-IP Assessment and Plan Start: 11/28/17 12:23 Freq: NEEDED Status: Active Protocol: Document 11/28/17 13:30 [facility] (Rec: 11/28/17 14:33 [email or web address] [email or web address]) PT Summary Assessment and Plan Potential Rehabilitation Potential Excellent Status of Condition at Evaluation Evolving Summary Impairments Pain Strength Balance Bed Mobility Transfers Gait Activity Tolerance Progress Towards Goals Slow Progress due to Medical Issues Assessment Summary Continued slow post-op progression with dizziness, nausea, vomiting, cold sweats. Good attempts by patient. Receptive with instruction. Frequency of Treatment Frequency Of Treatment Twice a Day Treatment Plan Physical Therapy Treatment Plan Bed Mobility Training Transfer Training Gait Training Therapeutic Exercise Balance Retraining Post Op Education Recommendations To Nursing Amount of Assist Needed 1 Person Assist Discharge Recommendations PT Discharge Recommendations Home Other Discharge Recommendations Home with and mother. Equipment Needed for Home Before No further equipment at Discharge present from PT. May need equipment from OT.
--- NOTE | 2017-11-29 12:18 | PC.NURSE ---
Pts percolone given earlier not helping pts back pain. He was also given tylenol and vistaril but pain level only down to a 7/10. Talked to KIM Corley and she ordered 2mg-4mg. Given around 1245, and pt also given mylanta and some zofran to help prevent nausea from pain medications. Started on Dilaudid and will check on patient shortly to see how he is doing.
[2017-11-29 13:00] VITALS: BP 120/74; PULSE 69; RESP 18; TEMP 36.7; O2SAT 97
--- NOTE | 2017-11-29 15:52 | PT.IPTN ---
Current Diagnoses Spondylolisthesis, lumbosacral region (11/27/17) Other spondylosis with radiculopathy, lumbar region (11/27/17) Spinal stenosis, lumbar region without neurogenic claudication (11/27/17) Surgery Performed Operation Date: 11/27/17 13:15 Actual Procedures p L5-S1 TLIF(Not Applicable) - Clarence Mendoza MD Physical Therapy Treatment Note M2 PT-IP Current Condition Start: 11/28/17 12:23 Freq: NEEDED Status: Active Protocol: Document 11/28/17 13:30 [facility] (Rec: 11/28/17 14:33 [email or web address] [email or web address]) Physical Therapy Current Condition Current Condition Evaluation Date 11/28/17 Treatment Diagnosis s/p L5-SA postero-lateral and interbody fusion Onset Date 11/27/17 surgery Precautions Lumbar Precautions Log Roll No Twisting Limit Bending Lifting Restriction of 10 lbs Gait Belt above Incisional Area Other Precautions Instructions provided to and patient. Attentive during instruction. Weight Bearing Status Weight Bearing Status Full Weight Bearing M3 PT-IP Subjective Start: 11/28/17 12:23 Freq: NEEDED Status: Active Protocol: Document 11/29/17 15:43 [facility] (Rec: 11/29/17 15:52 SA [id number]) Subjective Physical Therapy Visit Type Type Treatment Note Visit Start Time 15:00 Visit Stop Time 15:38 Total Visit Minutes 38 Notes Set up treatment time prior to session for end of pain med cycle as pt gets very dizzy and nauseus with pain meds. Pt agreeable to PT at planned time. Number of PROCESS CONTROL BOARD OPERATOR Visits 1 Physical Therapy Visit Comments Patient Comments Pt able to ambulate in room with no symptoms but rates back pain as 8/10 with movement. Therapy Pain Assessment Pain When Pain Assessed During Mobility Pain Present Pain Present Pain Reported Location Lower Back Intensity 8 Scale Used Numeric (1 - 10) Pain Management Techniques Apply Cold Modification of Treatment Re-positioning Timing of Activity with Medications M4 PT-IP Mobility and Gait Start: 11/28/17 12:23 Freq: NEEDED Status: Active Protocol: Document 11/29/17 15:43 SA (Rec: 11/29/17 15:52 SA [id number]) PT-Bed Mobility Assessment Rolling Type of Rolling Log Rolling Roll to Left Level of Assist Minimal Assistance 1 Person Assistance Supine to Sit Supine to Sit Moderate Assistance 1 Person Assistance Sit to Supine Sit to Supine Moderate Assistance 1 Person Assistance Scooting Scooting to Edge of Bed Minimal Assistance Scooting Up and Down in Bed Minimal Assistance PT-Transfer Assessment Sit to and From Stand Sit to and from Stand Contact Guard Assistance 1 Person Assistance Use of Upper Extremities Equipment Transfer Assistive Device Gait Belt Front Wheeled Walker Transfers Transfer Destination Bed Transfer Ability Level of Assist Contact Guard Assistance 1 Person Assistance Comments Mobility Comments Patient's movements very slow, gaurded. Allow for increased time with mobility tasks, pt likes to direct his care. Gait Assessment Gait Gait Assistance Required: Contact Guard Assist Distance (Feet) 30 Able to Maintain Weight Bearing Status Yes During Gait Assistive Devices Assistive Device Front Wheeled Walker Orthotic/Prosthetic Devices or Brace: No Gait Deviations General Gait Pattern Decreased Stride Length Flexed Trunk Factors Limiting Gait Function Factors Limiting Gait Function Decreased Activity Tolerance Decreased Strength Pain Comments Gait Comments Pt very guarded with gait, rates pain as 8/10 with movement but 1/10 at rest. M5 PT-IP Objective Assessments Start: 11/28/17 12:23 Freq: NEEDED Status: Active Protocol: Document 11/28/17 13:30 [facility] (Rec: 11/28/17 14:33 [email or web address] [email or web address]) Orientation Orientation/Cognition Level of Alertness Alert M6 PT-IP Treatment Start: 11/28/17 12:23 Freq: NEEDED Status: Active Protocol: Document 11/29/17 15:43 SA (Rec: 11/29/17 15:52 [id number]) Physical Therapy Treatment Exercises Exercises Ankle Pumps Gluteal Sets Other Treatments Other Treatment Performed Education regarding frequent movment, position changes. M7 PT-IP Assessment and Plan Start: 11/28/17 12:23 Freq: NEEDED Status: Active Protocol: Document 11/29/17 15:43 SA (Rec: 11/29/17 15:52 [id number]) PT Summary Assessment and Plan Potential Rehabilitation Potential Good Status of Condition at Evaluation Evolving Frequency of Treatment Frequency Of Treatment Twice a Day Recommendations To Nursing Amount of Assist Needed 1 Person Assist Discharge Recommendations PT Discharge Recommendations Home Other Discharge Recommendations Home with and mother.
[2017-11-29 16:00] VITALS: BP 133/61; PULSE 79; RESP 18; TEMP 36.9; O2SAT 99
[2017-11-29 19:55] VITALS: BP 121/53; PULSE 57; RESP 19; TEMP 36.6
[2017-11-29] MEDS: SENNOSIDES 8.6 MG TABLET 17.2 MG PO (21:46)
[2017-11-30] MEDS: OXYCODONE IR 5 MG TABLET 10 MG PO ×3 (01:50→16:22)
[2017-11-30] MEDS: hydrOXYzine pamoate 25 MG CAPSULE PO ×3 (01:50→14:14)
[2017-11-30 02:19] VITALS: BP 119/63; PULSE 68; RESP 16; TEMP 37.1; O2SAT 96
[2017-11-30 05:02] VITALS: BP 117/65; PULSE 45; RESP 15; TEMP 36.7; O2SAT 98
[2017-11-30] MEDS: DEXAMETHASONE 4 MG TABLET PO ×2 (06:41→13:40)
[2017-11-30 08:15] VITALS: BP 125/66; PULSE 57; RESP 20; TEMP 36.7; O2SAT 97
[2017-11-30] MEDS: DOCUSATE 100 MG CAPSULE PO (08:16)
--- NOTE | 2017-11-30 09:11 | PT.IPTN ---
Current Diagnoses Spondylolisthesis, lumbosacral region (11/27/17) Other spondylosis with radiculopathy, lumbar region (11/27/17) Spinal stenosis, lumbar region without neurogenic claudication (11/27/17) Surgery Performed Operation Date: 11/27/17 13:15 Actual Procedures p L5-S1 TLIF(Not Applicable) - Clarence Mendoza MD Physical Therapy Treatment Note M2 PT-IP Current Condition Start: 11/28/17 12:23 Freq: NEEDED Status: Active Protocol: Document 11/28/17 13:30 [facility] (Rec: 11/28/17 14:33 [email or web address] [email or web address]) Physical Therapy Current Condition Current Condition Evaluation Date 11/28/17 Treatment Diagnosis s/p L5-SA postero-lateral and interbody fusion Onset Date 11/27/17 surgery Precautions Lumbar Precautions Log Roll No Twisting Limit Bending Lifting Restriction of 10 lbs Gait Belt above Incisional Area Other Precautions Instructions provided to and patient. Attentive during instruction. Weight Bearing Status Weight Bearing Status Full Weight Bearing M3 PT-IP Subjective Start: 11/28/17 12:23 Freq: NEEDED Status: Active Protocol: Document 11/30/17 09:04 (Rec: 11/30/17 09:11 [id number]) Subjective Physical Therapy Visit Type Type Treatment Note Visit Start Time 08:30 Visit Stop Time 08:58 Total Visit Minutes 28 Notes Pt agreeable to PT, at end of pain med dose. Rates back pain as 7/10. 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 Eager to d/c home. Therapy Pain Assessment Pain When Pain Assessed During Mobility Pain Present Pain Present Pain Reported Location Lower Back Intensity 7 Scale Used Numeric (1 - 10) Pain Management Techniques Apply Cold Modification of Treatment Timing of Activity with Medications M4 PT-IP Mobility and Gait Start: 11/28/17 12:23 Freq: NEEDED Status: Active Protocol: Document 11/30/17 09:04 (Rec: 11/30/17 09:11 [id number]) PT-Bed Mobility Assessment Rolling Type of Rolling Log Rolling Roll to Left Level of Assist Contact Guard Assistance Supine to Sit Supine to Sit Contact Guard Assistance 1 Person Assistance Sit to Supine Sit to Supine Contact Guard Assistance 1 Person Assistance Scooting Scooting to Edge of Bed Standby Assistance Scooting Up and Down in Bed Minimal Assistance PT-Transfer Assessment Sit to and From Stand Sit to and from Stand Standby Assistance Use of Upper Extremities Equipment Transfer Assistive Device Gait Belt Front Wheeled Walker Transfers Transfer Destination Bed Transfer Ability Level of Assist Standby Assistance 1 Person Assistance Comments Mobility Comments Slightly decreased pain and guarding today with mobility. Less assistance required. Gait Assessment Gait Gait Assistance Required: Standby Assistance Distance (Feet) 60 Able to Maintain Weight Bearing Status Yes During Gait Assistive Devices Assistive Device Front Wheeled Walker Orthotic/Prosthetic Devices or Brace: No Gait Deviations General Gait Pattern Decreased Stride Length Flexed Trunk Factors Limiting Gait Function Factors Limiting Gait Function Decreased Activity Tolerance Decreased Strength Pain Comments Gait Comments Improving quality of gait with cues for continuation of gait pattern and gait normalization, decreasing WBing through UEs. M5 PT-IP Objective Assessments Start: 11/28/17 12:23 Freq: NEEDED Status: Active Protocol: Document 11/28/17 13:30 [facility] (Rec: 11/28/17 14:33 [email or web address]) Orientation Orientation/Cognition Level of Alertness Alert M6 PT-IP Treatment Start: 11/28/17 12:23 Freq: NEEDED Status: Active Protocol: Document 11/30/17 09:04 (Rec: 11/30/17 09:11 [id number]) Physical Therapy Treatment Exercises Exercises Ankle Pumps Gluteal Sets Education Education Provided Precautions Safety Equipment Issued Equipment Type and Company Pt has FWW, BSC, wardrobe stylist and sock aide. M7 PT-IP Assessment and Plan Start: 11/28/17 12:23 Freq: NEEDED Status: Active Protocol: Document 11/30/17 09:04 (Rec: 11/30/17 09:11 [id number]) PT Summary Assessment and Plan Potential Rehabilitation Potential Good Status of Condition at Evaluation Evolving Frequency of Treatment Frequency Of Treatment Twice a Day Treatment Plan Physical Therapy Treatment Plan Bed Mobility Training Transfer Training Gait Training Therapeutic Exercise Balance Retraining Post Op Education Recommendations To Nursing Amount of Assist Needed 1 Person Assist Discharge Recommendations PT Discharge Recommendations Home Other Discharge Recommendations [place] with and mother.
--- NOTE | 2017-11-30 09:27 | PC.NURSE ---
Pt prefers to use the po Dilaudid for his back pain and not oxycodone. He states that it works better for his discomfort. He has been up with PT and ambulating in the halls and states that he is feeling better today. Dressing to lower back is cdi.
[2017-11-30] MEDS: HYDROMORPHONE 2 MG TABLET 4 MG PO ×2 (09:55→13:38)
[2017-11-30] MEDS: MAG HYDROX/ALUM/SIMETH 30 ML UDC PO (09:57)
[2017-11-30] MEDS: MAGNESIUM HYDROXIDE 30 ML UDC PO (10:03)
[2017-11-30 12:50] VITALS: BP 126/63; PULSE 60; RESP 16; TEMP 36.8; O2SAT 96
--- NOTE | 2017-11-30 14:46 | PT.IPTN ---
Current Diagnoses Spondylolisthesis, lumbosacral region (11/27/17) Other spondylosis with radiculopathy, lumbar region (11/27/17) Spinal stenosis, lumbar region without neurogenic claudication (11/27/17) Surgery Performed Operation Date: 11/27/17 13:15 Actual Procedures p L5-S1 TLIF(Not Applicable) - Clarence Mendoza MD Physical Therapy Treatment Note M2 PT-IP Current Condition Start: 11/28/17 12:23 Freq: NEEDED Status: Active Protocol: Document 11/28/17 13:30 NFW (Rec: 11/28/17 14:33 [id number]) Physical Therapy Current Condition Current Condition Evaluation Date 11/28/17 Treatment Diagnosis s/p L5-SA postero-lateral and interbody fusion Onset Date 11/27/17 surgery Precautions Lumbar Precautions Log Roll No Twisting Limit Bending Lifting Restriction of 10 lbs Gait Belt above Incisional Area Other Precautions Instructions provided to and patient. Attentive during instruction. Weight Bearing Status Weight Bearing Status Full Weight Bearing M3 PT-IP Subjective Start: 11/28/17 12:23 Freq: NEEDED Status: Active Protocol: Document 11/30/17 14:38 SA (Rec: 11/30/17 14:46 SA [id number]) Subjective Physical Therapy Visit Type Type Treatment Note Visit Start Time 13:35 Visit Stop Time 14:09 Total Visit Minutes 34 Notes Pt with family/caregivers present fot PT today. 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 No nausea. Therapy Pain Assessment Pain When Pain Assessed During Mobility Pain Present Pain Present Pain Reported Location Lower Back Intensity 7 Scale Used Numeric (1 - 10) Pain Management Techniques Apply Cold Re-positioning Timing of Activity with Medications M4 PT-IP Mobility and Gait Start: 11/28/17 12:23 Freq: NEEDED Status: Active Protocol: Document 11/30/17 14:38 SA (Rec: 11/30/17 14:46 SA [id number]) PT-Transfer Assessment Sit to and From Stand Sit to and from Stand Standby Assistance Use of Upper Extremities Equipment Transfer Assistive Device Gait Belt Front Wheeled Walker Transfers Transfer Destination Chair Transfer Technique Stand Step Pivot Transfer Ability Level of Assist Standby Assistance 1 Person Assistance Comments Mobility Comments Pt mobilizing better wit decreased gaurding and less time required. Gait Assessment Gait Gait Assistance Required: Standby Assistance Distance (Feet) 120 Able to Maintain Weight Bearing Status Yes During Gait Assistive Devices Assistive Device Gait Belt Front Wheeled Walker Orthotic/Prosthetic Devices or Brace: No Gait Deviations General Gait Pattern Decreased Stride Length Decreased Feet Clearance Factors Limiting Gait Function Factors Limiting Gait Function Decreased Activity Tolerance Decreased Strength Pain Comments Gait Comments Improved endurance and tolerance of ambultion today. Stair Climbing Assessment Evaluation Level of Assist On Stairs Contact Guard Assistance Devices Stair Climbing Assistive Devices Front Wheel Walker Technique/Endurance Stair Climbing Direction Ascend and Descend Stair Climbing Technique Step to Step Number of Steps Climbed 1 Query Text: Stair Climbing Set # Repetitions (reps) 1 Comments Stair Climbing Comments Pt used FWW and platform step with CGA and mod cues. M5 PT-IP Objective Assessments Start: 11/28/17 12:23 Freq: NEEDED Status: Active Protocol: Document 11/28/17 13:30 NFW (Rec: 11/28/17 14:33 [id number]) Orientation Orientation/Cognition Level of Alertness Alert M6 PT-IP Treatment Start: 11/28/17 12:23 Freq: NEEDED Status: Active Protocol: Document 11/30/17 14:38 SA (Rec: 11/30/17 14:46 [id number]) Physical Therapy Treatment Exercises Exercises Ankle Pumps Gluteal Sets Education Education Provided Precautions Safety Equipment Issued Equipment Type and Company Pt has all equipment needed. Other Treatments Other Treatment Performed Standing postural correction. Discussed any concerns about d /c with family and patient. M7 PT-IP Assessment and Plan Start: 11/28/17 12:23 Freq: NEEDED Status: Active Protocol: Document 11/30/17 14:38 SA (Rec: 11/30/17 14:46 [id number]) PT Summary Assessment and Plan Potential Rehabilitation Potential Good Status of Condition at Evaluation Stable Frequency of Treatment Frequency Of Treatment Twice a Day Recommendations To Nursing Amount of Assist Needed 1 Person Assist Discharge Recommendations PT Discharge Recommendations Home Other Discharge Recommendations Plan to d/c tonight with family.
--- NOTE | 2017-11-30 15:41 | PM.DS.1 ---
History of Present Illness Date Patient Seen: 11/30/17 Time Patient Seen: 15:42 Chief complaint: L5-S1 TLIF Narrative: Patient has been having chronic back pain and worsening lumbar radiculopathy. Patient failed multiple conservative management with worsening pain weakness and numbness in her lower extremity. Patient has been having difficulty performing activity of daily living. After discussing risks benefits of treatment options, patient elected proceed with surgery. Patient seen bedside. Discharge Providers Date of admission: 11/27/17 11:16 Consults: 11/27/17 18:02 Consult to Occupational Therapy Evaluate & Treat Comment: Physician Instructions: Evaluate and treat Consult to Physical Therapy Evaluate & Treat Comment: Physician Instructions: Evaluate and Treat Discharge provider: Jory Subramanian PA-C Discharge Date: 11/30/17 Summary Discharge Diagnosis: 1. L5-S1 spinal stenosis 2. L5-S1 spondylosis with radiculopathy 3. L5-S1 spondylolisthesis Hospital Course: Patient was admitted status post L5-S1 TLIF by Dr. Osman on 11/27/17. Patient tolerated procedure well with no major complications. Patient transferred to the floor and seen by PT who recommended he be discharged home with outpatient PT. Patient is home to assist him. Patient pain was well controlled with 4mg Dilaudid. Patient is stable and ready for discharge on 11/30/17. Calfs are soft, non tender and compressible bilaterally. Lumbar cover site dressing is CDI. Status at Discharge Functional status at discharge: uses cane/walker Overall status at discharge: patient is progressing back to baseline Time Spent with Patient Less than 30 minutes Exam Vital Signs (past 8 hours): - 11/30/17 08:15 11/30/17 12:50 Temperature 98.0 F 98.3 F Pulse Rate 57 L 60 Respiratory Rate 20 16 Blood Pressure 125/66 126/63 Pulse Oximetry 97 96 Oxygen Delivery Method Room Air Oxygen Flow Rate 0 Narrative Exam Narrative: Patient is AOx3. Patient is lying in bed in no acute distress. Radial and dorsalis pedis pulses 2+ and symmetric. 5/5 muscle strength in dorsiflexion, plantarflexion and metal furniture glazier bilaterally. Sensation to light touch intact in LE bilaterally. Lumbar dressing is CDI. Calfs are soft, non tender and compressible bilaterally. Patient reports that he feels much better in comparison to yesterday. He reports that his nausea and dizziness has improved. He reports seeing PT and was able to walk the halls. Patient reports that he would like to be discharged home today. is home to assist him. He reports that his pain is a 6/10 yet manageable with 4mg Dilaudid. Patient denies any fever, chills, vomiting, chest pain or SOB. Objective Labs Result Diagrams: 11/28/17 06:25 Discharge Plan Discharge Plan Patient Disposition: Home Discharge Med Rec/Prescriptions Prescriptions: New hydromorphone 2 mg Tablet 4 mg PO Q4HR PRN (Reason: Pain, Severe (7-10)) Qty: 60 RF: 0 hydroxyzine pamoate 25 mg Capsule 25 mg PO Q4HR PRN (Reason: Nausea And Vomiting) Qty: 60 RF: 0 Discontinued meloxicam [Mobic] 7.5 mg Tablet 15 mg PO DAILY Qty: 0 RF: 0 Follow up/Referrals: Clarence Osman MD [Physician] - 1 Week (Follow up at [facility] [place] with Dr. OSMAN on 12/08/17 at schedule appointment.) Provider Discharge Instructions Diet: Diet as Tolerated Activity: Limit bending, twisting and lifting. Use cane/walker until cleared by PT. Cold/Heat Therapy: Cold compress as needed Skin/Wound/Dressing Care Report to your healthcare provider any signs of infection, such as:: chills, fever, night sweats, increased pain and unusual drainage Dressing: Keep clean and dry. Visit Report/Discharge Packet Instructions: Spinal Fusion, Hydromorphone, Hydroxyzine, DI for Transforaminal Lumbar Interbody Fusion Visit Report Forms: Stroke Signs & Symptoms Discharge Data Attending Provider: Clarence Osman Admit Date/Time: 11/27/17 11:16 Discharges patient from system. Discharge Date/Time: 11/30/17 17:12 Quality VTE Deep Vein Thrombosis/Pulmonary Embolism Present on Admission: No
--- NOTE | 2017-11-30 15:51 | P.DS_ITS ---
History of Present Illness Date Patient Seen: 11/30/17 Time Patient Seen: 15:42 Chief complaint: L5-S1 TLIF Narrative: Patient has been having chronic back pain and worsening lumbar radiculopathy. Patient failed multiple conservative management with worsening pain weakness and numbness in her lower extremity. Patient has been having difficulty performing activity of daily living. After discussing risks benefits of treatment options, patient elected proceed with surgery. Patient seen bedside. Discharge Providers Date of admission: 11/27/17 11:16 Consults: 11/27/17 18:02 Consult to Occupational Therapy Evaluate & Treat Comment: Physician Instructions: Evaluate and treat Consult to Physical Therapy Evaluate & Treat Comment: Physician Instructions: Evaluate and Treat Discharge provider: Jory Subramanian PA-C Discharge Date: 11/30/17 Summary Discharge Diagnosis: 1. L5-S1 spinal stenosis 2. L5-S1 spondylosis with radiculopathy 3. L5-S1 spondylolisthesis Hospital Course: Patient was admitted status post L5-S1 TLIF by Dr. Osman on 11/27. Patient tolerated procedure well with no major complications. Patient transferred to the floor and seen by PT who recommended he be discharged home with outpatient PT. Patient is home to assist him. Patient pain was well controlled with 4mg Dilaudid. Patient is stable and ready for discharge on 11/30. Calfs are soft, non tender and compressible bilaterally. Lumbar cover site dressing is CDI. Status at Discharge Functional status at discharge: uses cane/walker Overall status at discharge: patient is progressing back to baseline Time Spent with Patient Less than 30 minutes Exam Vital Signs (past 8 hours): - 11/30/17 08:15 11/30/17 12:50 Temperature 98.0 F 98.3 F Pulse Rate 57 L 60 Respiratory Rate 20 16 Blood Pressure 125/66 126/63 Pulse Oximetry 97 96 Oxygen Delivery Method Room Air Oxygen Flow Rate 0 Narrative Exam Narrative: Patient is AOx3. Patient is lying in bed in no acute distress. Radial and dorsalis pedis pulses 2+ and symmetric. 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 Sensation to light touch intact in LE bilaterally. Lumbar dressing is CDI. Calfs are soft, non tender and compressible bilaterally. Patient reports that he feels much better in comparison to yesterday. He reports that his nausea and dizziness has improved. He reports seeing PT and was able to walk the halls. Patient reports that he would like to be discharged home today. is home to assist him. He reports that his pain is a 6/10 yet manageable with 4mg Dilaudid. Patient denies any fever, chills, vomiting, chest pain or SOB. Objective Labs Result Diagrams: 11/28/17 06:25 Discharge Plan Discharge Plan Patient Disposition: Home Discharge Med Rec/Prescriptions Prescriptions: New hydromorphone 2 mg Tablet 4 mg PO Q4HR PRN (Reason: Pain, Severe (7-10)) Qty: 60 RF: 0 hydroxyzine pamoate 25 mg Capsule 25 mg PO Q4HR PRN (Reason: Nausea And Vomiting) Qty: 60 RF: 0 Discontinued meloxicam [Mobic] 7.5 mg Tablet 15 mg PO DAILY Qty: 0 RF: 0 Follow up/Referrals: Clarence Osman MD [Physician] - 1 Week ([place] [facility] [place]SM[place] on 12/08/17 at schedule appointment.) Provider Discharge Instructions Diet: Diet as Tolerated Activity: Limit bending, twisting and lifting. Use cane/walker until cleared by PT. Cold/Heat Therapy: Cold compress as needed Skin/Wound/Dressing Care Report to your healthcare provider any signs of infection, such as:: chills, fever, night sweats, increased pain and unusual drainage Dressing: Keep clean and dry. Visit Report/Discharge Packet Instructions: Spinal Fusion, Hydromorphone, Hydroxyzine, DI for Transforaminal Lumbar Interbody Fusion Visit Report Forms: Stroke Signs & Symptoms Discharge Data Attending Provider: Clarence Osman Admit Date/Time: 11/27/17 11:16 Discharges patient from system. Discharge Date/Time: 11/30/17 17:12 Quality VTE Deep Vein Thrombosis/Pulmonary Embolism Present on Admission: No
--- NOTE | 2017-11-30 16:22 | OT.IP.TRT ---
Current Diagnoses Spondylolisthesis, lumbosacral region (11/27/17) Other spondylosis with radiculopathy, lumbar region (11/27/17) Spinal stenosis, lumbar region without neurogenic claudication (11/27/17) Surgery Performed Operation Date: 11/27/17 13:15 Actual Procedures p L5-S1 TLIF(Not Applicable) - Clarence Mendoza MD Occupational Therapy Treatment Note M2 OT-IP Current Condition Start: 11/28/17 15:03 Freq: Status: Active Protocol: Document 11/29/17 10:10 [facility] (Rec: 11/29/17 10:57 [facility] [id number]) Occupational Therapy Current Condition Current Condition Evaluation Date 11/29/17 Treatment Diagnosis Spinal Stenosis Diagnosis Onset Date 11/27/17 Post Operative Precautions Lumbar Precautions Log Roll No Twisting Limit Bending Lifting Restriction of 10 lbs Gait Belt above Incisional Area Other Precautions Instructions provided to and patient. Attentive during instruction. Weight Bearing Status Weight Bearing Status Full Weight Bearing M3 OT- IP Subjective and Pain Start: 11/28/17 15:03 Freq: Status: Active Protocol: Document 11/30/17 14:30 [facility] (Rec: 11/30/17 16:22 [facility] [id number]) OT- Subjective Occupational Therapy Visit Type Type Administrative Note Notes Spoke to pt's and has good understanding for all OT needs for pt and able to pickle maker BSC for pt. Pt going home today.
== END 2017-11-30 17:12 | disposition home or self-care (01) | DRG 455 ==
PROVIDERS: Admitting Provider Orthopaedic Surgery Orthopaedic Surgery of the Spine; Visit Provider Orthopaedic Surgery Orthopaedic Surgery of the Spine
PROC: 0SG30AJ Fusion of Lumbosacral Joint with Interbody Fusion Device, Posterior Approach, Anterior Column, Open Approach (ICD-10-PCS; principal; 2017-11-27 13:15)
DX: M43.17 Spondylolisthesis, lumbosacral region (principal); M47.26 Other spondylosis with radiculopathy, lumbar region; Z87.891 Personal history of nicotine dependence; M48.07 Spinal stenosis, lumbosacral region
CPT/HCPCS: 36415; 72100; 76001; 85014; 85018; 97116; 97162; 97165; 97530; C1776; C9290; J0330; J0690; J1100; J1170; J2060; J2250; J2405; J2704; J2765; J3010